=== PATIENT | female | born 1955 | race Caucasian/White ===

== ENCOUNTER 2017-08-18 07:21 | Inpatient (IN) | payer MEDICAID, OTHER ==
[~2017-08-18] VITALS: Ht 165.1 cm; Wt 65.0 kg
[2017-08-18 07:27] VITALS: Ht 165.1 cm; Wt 65.0 kg
[2017-08-18] MEDS ORDERED: ONDANSETRON 4 MG INJ IV STA (07:44)
[2017-08-18] MEDS ORDERED: SOD CHLORIDE 0.9% 1,000 ML IV STA (07:44)
[2017-08-18] MEDS ORDERED: MECLIZINE 12.5 MG TAB PO ONE (08:00)
[2017-08-18] MEDS ORDERED: LORAZEPAM 2 MG INJ IV ONE ×2 (08:00→10:00)
[2017-08-18 08:50] LABS: BASOPHILS % 0.3 % (0.0-2.0); EOSINOPHILS # 0.2 10^3/ul (0.0-0.5); EOSINOPHILS % 1.9 % (0.0-7.0); HEMOGLOBIN 15.8 g/dl (12.0-16.0); LYMPHOCYTES # 2.9 10^3/ul (0.8-2.9); LYMPHOCYTES % 33.1 % (15.0-51.0); MEAN CORPUSCULAR HEMOGLOBIN 29.3 pg (29.0-33.0); MEAN CORPUSCULAR HGB CONC 33.6 g/dl (32.0-37.0); MONOCYTE # 0.6 10^3/ul (0.3-0.9); MONOCYTES % 6.7 % (0.0-11.0); NEUTROPHILS % 57.8 % (39.0-77.0); PLATELET COUNT 219 10^3/UL (140-415); RED CELL DISTRIBUTION WIDTH 13.5 % (11.5-14.5); WHITE BLOOD COUNT 8.8 10^3/ul (4.8-10.8)
--- NOTE | 2017-08-18 08:54 | RADRPT ---
PROCEDURE: Chest Radiograph. CLINICAL INDICATION: Abdominal pain TECHNIQUE: Single frontal chest radiograph. COMPARISON: None available FINDINGS: Patient is status post sternotomy. Mechanical valve is in place.. There is diffuse increased densit y throughout the left hemithorax which is likely artifactual in nature. No infiltrate or effusion is seen. The bones are intact. IMPRESSION: 1. No evidence of acute cardiopulmonary disease. RPTAT: KK .Jean Garcia MD, MD Date Time Electronically viewed and signed by .Jean Garcia MD, MD on 08/18/2017 08:54 .B/
[2017-08-18 09:16] LABS: ALANINE AMINOTRANSFERASE 38 IU/L (13-69); ALBUMIN 4.4 g/dl (3.3-4.9); ALBUMIN/GLOBULIN RATIO 1.18; ALKALINE PHOSPHATASE 84 IU/L (42-121); ANION GAP 14 (8-16); ASPARTATE AMINO TRANSFERASE 31 IU/L (15-46); BILIRUBIN,INDIRECT 0.5 mg/dl (0-1.1); BILIRUBIN,TOTAL 0.5 mg/dl (0.2-1.3); BLOOD UREA NITROGEN 25 mg/dl (7-20); CALCIUM 9.4 mg/dl (8.4-10.2); CARBON DIOXIDE 27 mmol/L (21-31); CHLORIDE 106 mmol/L (97-110); CREATININE 0.78 mg/dl (0.44-1.00); GLUCOSE 124 mg/dl (70-220); SODIUM 143 mmol/L (135-144); TOTAL PROTEIN 8.1 g/dl (6.1-8.1)
[2017-08-18] MEDS ORDERED: DILTIAZEM 25 MG INJ ONE (09:25)
[2017-08-18 09:27] LABS: TROPONIN-I < 0.012 ng/ml (0.00-0.12)
[2017-08-18] MEDS ORDERED: DILTIAZEM 25 MG INJ IV ONE (09:30)
[2017-08-18] MEDS ORDERED: DIGO125T6 PO (09:38)
[2017-08-18] MEDS ORDERED: CARV12.598 PO (09:39)
[2017-08-18 09:40] LABS: ADD UMIC YES; UR ASCORBIC ACID NEGATIVE (NEGATIVE); UR BILIRUBIN (Dip) NEGATIVE (NEGATIVE); UR BLOOD (Dip) 1+ mg/dL (NEGATIVE); UR CLARITY SLIGHTLY CLOUDY (CLEAR); UR COLOR YELLOW (YELLOW); UR GLUCOSE (Dip) NEGATIVE (NEGATIVE); UR KETONES (Dip) NEGATIVE (NEGATIVE); UR LEUKOCYTE ESTERASE (Dip) TRACE Leu/ul (NEGATIVE); UR NITRITE (Dip) NEGATIVE (NEGATIVE); UR RBC 3 /HPF (0-5); UR SPECIFIC GRAVITY (Dip) 1.023 (1.003-1.030); UR TOTAL PROTEIN (Dip) NEGATIVE (NEGATIVE); UR UROBILINOGEN (Dip) NEGATIVE (NEGATIVE)
[2017-08-18] MEDS ORDERED: WARF2.5T PO (09:42)
[2017-08-18] MEDS ORDERED: WARF5TAB72 PO (09:55)
[2017-08-18] MEDS ORDERED: PRAV20TA2 PO (09:56)
[2017-08-18] MEDS ORDERED: MECL12.574 PO (09:57)
[2017-08-18 10:30] LABS: INR 2.86; PROTIME 30.4 Sec (12.2-14.2); PT RATIO 2.4
[2017-08-18 10:31] LABS: PARTIAL THROMBOPLASTIN TIME 46.8 Sec (25.0-35.0)
--- NOTE | 2017-08-18 11:13 | ERA ---
ER Documentation Chief Complaint Date/Time DATE: 08/18/17 TIME: 11:09 Chief Complaint Complains of vertigo x 3 days HPI 62-year-old woman complains of dizziness and vertigo 3 days, history of arrhythmia, although patient does not recall her exact diagnosis. She feels weak but denies palpitations, states she had a similar episode about a year ago. She has had some nausea no vomiting or diarrhea, no chest pain or shortness of breath, no headache or blurry vision, no dysuria. ROS All systems reviewed and are negative except as per history of present illness. Medications Home Meds Reported Medications Meclizine Hcl* (Antivert*) 12.5 Mg Tab, 12.5 MG PO Q8H Y for DIZZINESS, #30 TAB 08/18/17 Pravastatin Sodium (Pravastatin Sodium) 20 Mg Tablet, 20 MG PO HS, TAB 08/18/17 Warfarin Sodium* (Coumadin*) 5 Mg Tablet, 5 MG PO TUESDAY & TUESDAY, TAB 08/18/17 Warfarin Sodium* (Coumadin*) 2.5 Mg Tablet, 2.5 MG PO TUE,,TUE,SAT,SUN, TAB 08/18/17 Carvedilol* (Coreg*) 12.5 Mg Tablet, 12.5 MG PO BID, #60 TAB 08/18/17 Digoxin* (Lanoxin*) 0.125 Mg Tablet, 0.125 MG PO DAILY, TAB 08/18/17 Allergies Allergies: Coded Allergies: levofloxacin (Verified Allergy, Mild, Heart problems, rash, 08/18/17) PMhx/Soc Possible atrial fibrillation, history of mitral valve replacement, hypertension Hx Alcohol Use: No Hx Substance Use: No Hx Tobacco Use: No Smoking Status: Never smoker FmHx Family History: No diabetes Physical Exam Vitals Vital Signs Date Time Temp Pulse Resp B/P Pulse Ox O2 Delivery O2 Flow Rate FiO2 08/18/17 11:18 80 18 107/64 98 Nasal Cannula 2.0 08/18/17 09:45 75 18 117/62 99 Nasal Cannula 2.0 08/18/17 09:39 138 18 116/54 99 Nasal Cannula 2.0 08/18/17 08:34 104 21 122/77 98 Room Air 08/18/17 07:27 98.2 79 20 135/78 98 Physical Exam GENERAL: Well-developed, well-nourished, appears anxious, afebrile HEENT: Moist mucous membranes, pink conjunctiva, no cervical spine tenderness or step-off deformities, no goiter, no jaundice or icterus, extraocular movements intact without pain. No submandibular induration, and no pharyngeal erythema NEURO: Alert and oriented 3, cranial nerves II through XII intact bilaterally, pupils equal round reactive to light, no focal deficits or facial asymmetry, sensation intact distally Strength 5/5 in upper and lower extremities bilaterally CARDIAC: Tachycardic and regular, no murmurs rubs or gallops LUNGS: Clear bilaterally no wheezing crackles or stridor ABDOMEN: Soft nontender, no guarding, no rigidity, no rebound, no psoas sign no obturator sign. Normoactive bowel sounds SKIN: Warm and dry to touch, no abrasions, contusions, or hematomas, no lacerations, no ecchymosis, no target lesions, and without ulcers EXTREMITIES: No clubbing cyanosis or edema, calves are bilaterally symmetrical, no Homans sign, no popliteal cord sign. Distal pulses equal and bilateral PSYCH: Anxious Result Diagram: 08/18/17 0801 08/18/17 08 Results 24 hrs Laboratory Tests Test 08/18/17 08:01 White Blood Count 8.810^3/ul Red Blood Count 5.4010^6/ul Hemoglobin 15.8g/dl Hematocrit 47.0% Mean Corpuscular Volume 87.0fl Mean Corpuscular Hemoglobin 29.3pg Mean Corpuscular Hemoglobin Concent 33.6g/dl Red Cell Distribution Width 13.5% Platelet Count 65678^3/UL Mean Platelet Volume 11.0fl Neutrophils % 57.8% Lymphocytes % 33.1% Monocytes % 6.7% Eosinophils % 1.9% Basophils % 0.3% Nucleated Red Blood Cells % 0.0/100WBC Neutrophils # 5.010^3/ul Lymphocytes # 2.910^3/ul Monocytes # 0.610^3/ul Eosinophils # 0.210^3/ul Basophils # 0.010^3/ul Nucleated Red Blood Cells # 0.010^3/ul Prothrombin Time 30.4Sec Prothrombin Time Ratio 2.4 INR International Normalized Ratio 2.86 Activated Partial Thromboplast Time 46.8Sec Urine Color YELLOW Urine Clarity SLIGHTLY CLOUDY Urine pH 6.0 Urine Specific [place] 1.023 Urine Ketones NEGATIVEmg/dL Urine Nitrite NEGATIVEmg/dL Urine Bilirubin NEGATIVEmg/dL Urine Urobilinogen NEGATIVEmg/dL Urine Leukocyte Esterase TRACELeu/ul Urine Microscopic RBC 3/HPF Urine Microscopic WBC 1/HPF Urine Hemoglobin 1+mg/dL Urine Glucose NEGATIVEmg/dL Urine Total Protein NEGATIVEmg/dl Sodium Level 143mmol/L Potassium Level 4.0mmol/L Chloride Level 106mmol/L Carbon Dioxide Level 27mmol/L Anion Gap 14 Blood Urea Nitrogen 25mg/dl Creatinine 0.78mg/dl Glucose Level 124mg/dl Calcium Level 9.4mg/dl Total Bilirubin 0.5mg/dl Direct Bilirubin 0.00mg/dl Indirect Bilirubin 0.5mg/dl Aspartate Amino Transf (AST/SGOT) 31IU/L Alanine Aminotransferase (ALT/SGPT) 38IU/L Alkaline Phosphatase 84IU/L Troponin I < 0.012ng/ml B-Type Natriuretic Peptide 1710PG/ML Total Protein 8.1g/dl Albumin 4.4g/dl Globulin 3.70g/dl Albumin/Globulin Ratio 1.18 Lipase 85U/L Current Medications Medications (Trade) Dose Ordered Sig/Stefani Route PRN Reason Start Time Stop Time Status Last Admin Dose Admin Sodium Chloride (NS) 1,000 ml @ 1,000 mls/hr Q1H STAT IV 08/18/17 07:44 08/18/17 08:43 DC 08/18/17 08:28 Ondansetron HCl (Zofran Inj) 4 mg ONCE STAT IV 08/18/17 07:44 08/18/17 08:22 DC Lorazepam (Ativan) 0.5 mg ONCE ONCE IV 08/18/17 08:00 08/18/17 08:22 DC Meclizine HCl (Antivert) 25 mg ONCE ONCE PO 08/18/17 08:00 08/18/17 08:22 DC Diltiazem HCl (Cardizem Iv) 20 mg ONCE ONCE IV 08/18/17 09:30 08/18/17 09:32 DC 08/18/17 09:39 Diltiazem HCl (Cardizem Iv) 25 mg STK-MED ONCE .ROUTE 08/18/17 09:25 08/18/17 09:26 DC Lorazepam (Ativan) 1 mg ONCE ONCE IV 08/18/17 10:00 9/21/17 10:01 DC Carvedilol (Coreg) 12.5 mg BID PO 08/18/17 21:00 Digoxin (Digoxin) 0.125 mg DAILY@13 PO 08/19/17 13:00 Meclizine HCl (Antivert) 12.5 mg Q8H PRN PO DIZZINESS 08/18/17 13:00 Atorvastatin Calcium (Lipitor) 10 mg DAILY@21 PO 08/18/17 21:00 Metoprolol Tartrate (Lopressor) 5 mg Q4 PRN IV HR >100 08/18/17 13:00 Warfarin Sodium (Coumadin) 2.5 mg DAILY@17 PO 08/18/17 17:00 Loratadine (Claritin) 10 mg DAILY PO 08/18/17 13:00 Fluticasone Propionate (Flonase 0.05% Nasal) 1 spray DAILY NASAL 08/18/17 13:00 IV Flush (NS 3 ml) 3 ml PER PROTOCOL IV 08/18/17 13:00 Ondansetron HCl (Zofran Inj) 4 mg Q6H PRN IV NAUSEA AND/OR VOMITING 08/18/17 13:00 Acetaminophen (Tylenol Tab) 650 mg Q6H PRN PO PAIN LEVEL 1-3 OR FEVER 08/18/17 13:00 Docusate Sodium (Colace) 100 mg Q12H PRN PO CONSTIPATION 08/18/17 13:00 Magnesium Hydroxide (Milk Of Mag) 30 ml DAILY PRN PO CONSTIPATION 08/18/17 13:00 Procedures/MDM IV line was established patient was placed on cardiac exercise physiologist rhythm strip revealed a irregular narrow complex tachycardia at 120 bpm. Patient was afebrile. EKG performed, read by me revealed an atrial flutter with variable block and rapid ventricular rate at 118 bpm, normal axis, intraventricular conduction delay at 114 ms, no concerning ST elevations or depressions noted. I administered 1 L normal saline intravenously, and patient ultimately required diltiazem 20 mg IV 1 for symptomatic atrial flutter with RVR I also administered lorazepam 0.5 mg IV 1 for anxiety. EKG #2 post diltiazem therapy revealed an atrial flutter rate controlled at 53 beats per minute, normal axis, left ventricular conduction delay with a QRS duration of 114 ms, no concerning ST elevations or depressions noted. One view chest x-ray performed, read by me reveals synthetic mitral valve and sternotomy wires, no acute infiltrates, no pneumothorax. Critical Care: Time: 56 minutes, this was time separate from other billable procedures. Treatments/Evaluations: Close monitoring and treatment of unstable vital signs, cardiorespiratory, and neurologic status, while maintaining tight balance of fluid, respiratory, and cardiac interventions. CBC was unremarkable, electrolytes revealed dehydration with a BUN/creatinine of 25/0.8, liver function tests normal, troponin negative. Urine analysis is equivocal, cultures are pending and I will defer antibiotic management if indicated to admitting team. Patient remains symptomatic and will be admitted to telemetry setting for continued medical management and cardiology consultation. Her tachycardia has improved. Departure Diagnosis: Primary Impression: Atrial fibrillation with RVR Additional Impressions: Dehydration Dizziness Condition: Fair EDEN FORD MD Aug 18, 2017 11:13
--- NOTE | 2017-08-18 12:48 | HP ---
Date/Time of Note Date/Time of Note DATE: 08/18/17 TIME: 12:48 Assessment/Plan VTE Prophylaxis VTE Prophylaxis Intervention: other (fully anticoagulated on Coumadin) Lines/Catheters IV Catheter Type (from Nrsg): Peripheral IV Assessment/Plan Assessment/Plan 1. Aflutter with RVR - Patient found to have rate of 160 and aflutter on EKG. Given dose of Cardizem in ED which improved condition and now rate controlled - Patient has remained asymptomatic - Will check ECHO for any abnormalities - Patient did not take her medication this am which may have been reason behind RVR - Has not followed up with Cardiology. If no acute issues, will work on getting her set up as an outpatient for proper follow up rather than consult as inpatient - On Coumadin and will dose daily - will check TSH 2. BPPV - Patient has been experiencing vertigo for the past 2 weeks - Given Antivert with some relief - Most likely secondary to sinus congestion and will treat and monitor - Will advise patient about Melva maneuver to help with BPPV 3. Acute rhinitis - Patient has fluid in left TM and nasal bogginess - Will treat with Claritin and Flonase 4. MV replacement - stable 5. HLP - on statin 6. Diet - Heart healthy 7. Code status - Full code 8. DVT - SCD - Fully anticoagulated on Coumadin 9. Disposition - Will admit to telemetry >40 minutes was spent with patient at time of admission and all answers and concerns were addressed. HPI/ROS Admit Date/Time Admit Date/Time 08/18/17 Hx of Present Illness 62 yo F with PMH arrhythmia and mitral valve repair presented to ED c/o vertigo for the past 2 weeks. She states she was seen at [facility] this past Tuesday for evaluation. CT scan of head was performed and per patient was negative for any abnormalities and was discharged on Antivert. Patient states symptoms continued and shes been afraid there was something really wrong with her. She also admits to ringing in her ears but denies any new change in hearing. She had surgery on her left ear when she was 10 years old and has always had diminished hearing. She was found to have aflutter with RVR but patient states she is aware that she has an arrhythmia although does not experiencing any palpitations. She did not take her medication this am as well. She is currently on Coumadin. She does admit to having sinus issues and ran out of Flonase which usually helps. Denies any chest pain, palpitations, shortness of breath, or abdominal issues. ROS All 13 systems were reviewed and positive per HPI. All others found to be negative Constitutional: disoriented, fatigue, nausea, No chills, No diaphoresis Eyes: no complaints ENT: congestion, other (ringing in ears), pain Respiratory: No cough, No shortness of breath, No sputum, No wheezing Cardiovascular: No chest pain, No edema, No lightheadedness, No palpitations Gastrointestinal: nausea, no complaints, No constipation, No diarrhea, No vomiting Genitourinary: no complaints Musculoskeletal: no complaints Skin: no complaints Neurologic: dizziness Endocrine: no complaints Lymphatic: no complaints Psychological: nl mood/affect, no complaints Immunologic: no complaints PMH/Family/Social Past Medical History Medical History: high cholesterol, hypertension, other (mitral valve replacement, atrial arrhythmia) Past Surgical History Past Surgical Hx: other (mitral valve replacement) Family History Significant Family History: no pertinent family hx Social History Alcohol Use: none Smoking Status: Never smoker Drug Use: none Exam/Review of Systems Vital Signs Vitals Vital Signs Date Time Temp Pulse Resp B/P Pulse Ox O2 Delivery O2 Flow Rate FiO2 08/18/17 11:18 80 18 107/64 98 Nasal Cannula 2.0 08/18/17 07:27 98.2 Exam Constitutional: alert, distress (secondary to fear), oriented, well developed Psych: anxiety Head: atraumatic, normocephalic, other (horizontal nystagmus ) Eyes: EOMI, PERRL ENMT: mucosa pink and moist, tympanic membranes (scarring in right TM, fluid in left TM) Neck: non-tender, supple Respiratory: clear to auscultation, normal air movement, No crackles/rales, No diminished breath sounds, No wheezing Cardiovascular: irregular rhythm, murmurs/extra sounds, other (regular rate), No systolic murmur Gastrointestinal: nl liver, spleen, non-tender, soft, No distended, No rebound or guarding Genitourinary - Female: No CVA tenderness Musculoskeletal: nl extremities to inspection Extremities: normal pulses Neurological: CAR PORTER II-XII intact, nl mental status, nl speech, nl strength Skin: nl turgor Lymph: nl lymph nodes Labs Result Diagram: 08/18/17 0801 08/18/17 0801 BOBBI VICTOR MD Aug 18, 2017 12:48
[2017-08-18] MEDS ORDERED: DOCUSATE SODIUM 100 MG CAP PO PRN (13:00)
[2017-08-18] MEDS: LORATADINE 10 MG TAB PO SCH (13:00)
[2017-08-18] MEDS ORDERED: MAGNESIUM HYDROXIDE 30ML CUP PO PRN (13:00)
[2017-08-18] MEDS ORDERED: NACL 0.9% 3 ML SYG IV SCH (13:00)
[2017-08-18] MEDS: FLUTICASONE 0.05% 16 GM NAS SPRAY NASAL SCH (13:00)
[2017-08-18] MEDS ORDERED: ACETAMINOPHEN 325 MG TAB PO PRN (13:00)
[2017-08-18] MEDS ORDERED: ONDANSETRON 4 MG INJ IV PRN (13:00)
[2017-08-18] MEDS ORDERED: MECLIZINE 12.5 MG TAB PO PRN (13:00)
[2017-08-18] MEDS ORDERED: METOPROLOL 5 MG INJ IV PRN (13:00)
[2017-08-18 16:17] VITALS: TEMP 97.8
[2017-08-18 16:45] VITALS: BP 141/67; PULSE 67; RESP 18
[2017-08-18] MEDS: WARFARIN 2.5 MG TAB PO SCH (18:50)
[2017-08-18 19:56] VITALS: BP 116/53; PULSE 74; RESP 15
[2017-08-18 20:01] VITALS: PULSE 72
[2017-08-19] VITALS (11 sets, daily range): BP systolic 113–128; BP diastolic 53–62; PULSE 63–69; RESP 15–19
[2017-08-19] MEDS: ATORVASTATIN 10 MG TAB PO SCH ×3 (00:10→20:54)
[2017-08-19 07:21] LABS: BASOPHILS % 0.5 % (0.0-2.0); EOSINOPHILS # 0.1 10^3/ul (0.0-0.5); HEMATOCRIT 41.1 % (37.0-47.0); HEMOGLOBIN 13.2 g/dl (12.0-16.0); LYMPHOCYTES % 31.9 % (15.0-51.0); MEAN CORPUSCULAR HEMOGLOBIN 28.7 pg (29.0-33.0); MEAN CORPUSCULAR HGB CONC 32.1 g/dl (32.0-37.0); MEAN CORPUSCULAR VOLUME 89.3 fl (82.0-101.0); MEAN PLATELET VOLUME 10.4 fl (7.4-10.4); MONOCYTE # 0.4 10^3/ul (0.3-0.9); NEUTROPHIL # 3.6 10^3/ul (1.6-7.5); NEUTROPHILS % 58.3 % (39.0-77.0); PLATELET COUNT 162 10^3/UL (140-415); WHITE BLOOD COUNT 6.1 10^3/ul (4.8-10.8)
[2017-08-19 07:49] LABS: CHOL/HDL RATIO 4.7 RATIO; MAGNESIUM 1.9 mg/dl (1.7-2.5)
[2017-08-19 07:53] LABS: INR 3.26; PROTIME 33.7 Sec (12.2-14.2); PT RATIO 2.6
[2017-08-19 07:54] LABS: PARTIAL THROMBOPLASTIN TIME 47.1 Sec (25.0-35.0)
[2017-08-19 08:17] LABS: THYROID STIMULATING HORMONE 1.18 MIU/L (0.465-4.680)
[2017-08-19] MEDS: LORATADINE 10 MG TAB PO SCH (08:58)
[2017-08-19 09:35] LABS: ALBUMIN 3.5 g/dl (3.3-4.9); CALCIUM 8.7 mg/dl (8.4-10.2); CREATININE 0.72 mg/dl (0.44-1.00); PHOSPHORUS 2.7 mg/dl (2.5-4.9); POTASSIUM 4.1 mmol/L (3.5-5.1)
[2017-08-19] MEDS: FLUTICASONE 0.05% 16 GM NAS SPRAY NASAL SCH (12:30)
[2017-08-19] MEDS: DIGOXIN 0.125 MG TAB PO SCH (12:38)
--- NOTE | 2017-08-19 14:37 | PN ---
Date/Time of Note Date/Time of Note DATE: 08/19/17 TIME: 14:30 Assessment/Plan VTE Prophylaxis VTE Prophylaxis Intervention: SCD's Lines/Catheters IV C[facility]ter Type (from [facility]): Saline Lock Urinary Cath still in place: No Assessment/Plan Assessment/Plan 1. Aflutter with RVR- stable - Patient rate has been well controlled since admission. Will continue on current medications. - Patient has remained asymptomatic - ECHO performed and awaiting results. If no acute issues will have patient follow up as outpatient - Patient did not take her medication this am which may have been reason behind RVR - On Coumadin and will dose daily, hold today dose and repeat INR in am - TSH within normal limits 2. BPPV - Patient has been experiencing vertigo for the past 2 weeks - Most likely secondary to sinus congestion and will treat and monitor - Will advise patient about Melva maneuver to help with BPPV - Antivert 3. Acute rhinitis - Patient has fluid in left TM and nasal bogginess - Will treat with Claritin and Flonase 4. MV replacement - stable 5. HLP - on statin 6. Disposition - if patient stable after working with PT and no balance issues due to vertigo, will d/c home Subjective 24 Hr Interval Summary Free Text/Dictation Patient states has a discomfort in occipital area when she feels an episode of vertigo coming on. Denies any chest pain, shortness of breath, palpitations, nausea, vomiting, or abdominal issues. Exam/Review of Systems Vital Signs Vitals Vital Signs Date Time Temp Pulse Resp B/P Pulse Ox O2 Delivery O2 Flow Rate FiO2 08/19/17 12:00 64 08/19/17 11:16 97.5 19 125/60 96 08/18/17 19:56 Room Air 08/18/17 16:17 2.0 Intake and Output 08/18/17 08/18/17 08/19/17 15:00 23:00 07:00 Intake Total 300 ml Balance 300 ml Exam General: NAD, oriented, well developed HEENT: NC/AT. horizontal nystagmus, EOMI, PERRL, scarring in right TM, fluid in left TM Neck: non-tender, supple Respiratory: clear to auscultation, normal air movement, No crackles/rales, No diminished breath sounds, No wheezing Cardiovascular: irregular rhythm, regular rate. No systolic murmur Gastrointestinal: nl liver, spleen, non-tender, soft, No distended, No rebound or guarding Musculoskeletal: nl extremities to inspection Extremities: normal pulses Results Result Diagram: 08/19/17 0634 08/19/17 0634 Results 24 hrs Laboratory Tests Test 08/19/17 06:34 White Blood Count 6.1 # Red Blood Count 4.60 Hemoglobin 13.2 Hematocrit 41.1 Mean Corpuscular Volume 89.3 Mean Corpuscular Hemoglobin 28.7 L Mean Corpuscular Hemoglobin Concent 32.1 Red Cell Distribution Width 14.0 Platelet Count 162 # Mean Platelet Volume 10.4 Neutrophils % 58.3 Lymphocytes % 31.9 Monocytes % 7.0 Eosinophils % 2.0 Basophils % 0.5 Nucleated Red Blood Cells % 0.0 Neutrophils # 3.6 Lymphocytes # 2.0 Monocytes # 0.4 Eosinophils # 0.1 Basophils # 0.0 Nucleated Red Blood Cells # 0.0 Prothrombin Time 33.7 H Prothrombin Time Ratio 2.6 INR International Normalized Ratio 3.26 Activated Partial Thromboplast Time 47.1 H Sodium Level 140 Potassium Level 4.1 Chloride Level 109 Carbon Dioxide Level 27 Anion Gap 8 Blood Urea Nitrogen 22 H Creatinine 0.72 Glucose Level 103 Hemoglobin A1c 5.6 Calcium Level 8.7 Phosphorus Level 2.7 Magnesium Level 1.9 Albumin 3.5 Triglycerides Level 200 H Cholesterol Level 176 LDL Cholesterol, Calculated 99 HDL Cholesterol 37 Cholesterol/HDL Ratio 4.7 Thyroid Stimulating Hormone (TSH) 1.180 Medications Medications Current Medications Carvedilol (Coreg) 12.5 mg BID PO Last administered on 08/19/17 08:59; Admin Dose 12.5 MG; Start 08/18/17 at 21:00 Digoxin (Digoxin) 0.125 mg DAILY@13 PO Last administered on 08/19/17 12:38; Admin Dose 0.125 MG; Start 08/19/17 at 13:00 Meclizine HCl (Antivert) 12.5 mg Q8H PRN PO DIZZINESS; Start 08/18/17 at 13:00 Atorvastatin Calcium (Lipitor) 10 mg DAILY@21 PO ; Start 08/18/17 at 21:00 Metoprolol Tartrate (Lopressor) 5 mg Q4 PRN IV HR >100; Start 08/18/17 at 13:00 Warfarin Sodium (Coumadin) 2.5 mg DAILY@17 PO Last administered on 08/18/17 18 :50; Admin Dose 2.5 MG; Start 08/18/17 at 17:00; Status Future hold Loratadine (Claritin) 10 mg DAILY PO Last administered on 08/19/17 08:58; Admin Dose 10 MG; Start 08/18/17 at 13:00 Fluticasone Propionate (Flonase 0.05% Nasal) 1 spray DAILY NASAL Last administered on 08/19/17 12:30; Admin Dose 1 SPRAY; Start 08/18/17 at 13:00 Ondansetron HCl (Zofran Inj) 4 mg Q6H PRN IV NAUSEA AND/OR VOMITING; Start at 13:00 Acetaminophen (Tylenol Tab) 650 mg Q6H PRN PO PAIN LEVEL 1-3 OR FEVER; Start at 13:00 Docusate Sodium (Colace) 100 mg Q12H PRN PO CONSTIPATION; Start 08/18/17 at 13: 00 Magnesium Hydroxide (Milk Of Mag) 30 ml DAILY PRN PO CONSTIPATION; Start at 13:00 BOBBI VICTOR MD Aug 19, 2017 14:37
[2017-08-19] MEDS ORDERED: LORA10TA3 PO (14:38)
[2017-08-19] MEDS ORDERED: FLUT16SP17 NASAL (14:38)
[2017-08-19] MEDS ORDERED: MECL12.574 PO (14:38)
--- NOTE | 2017-08-19 14:43 | PDOCDIS ---
Discharge Instructions DIAGNOSIS Discharge Diagnosis 1. Aflutter with RVR 2. BPPV 3. Acute rhinitis CONDITION Patient Condition: Good HOME CARE INSTRUCTIONS: Diet Instructions: Low Fat /CholesterolSpecial Diet: LOW FAT LOW CHOLES ACTIVITY: Activity Restrictions: No Restrictions FOLLOW UP/APPOINTMENTS Follow-up Plan 1. [place] Antivert demetri sea necesario para los mareos. El vrtigo taya unas semanas para resolver completamente 2. Nicole un seguimiento con el mdico de atencin primaria para el manejo de hedy medicamentos 3. INR es ptimo hoy, taya dosis regular de Coumadin esta noche 4. si experimenta sntomas que empeoran, regrese a la ashley de emergencias REFERRALS Other Referrals Efren Gordon MD Specialty: Cardiology Office Address [address] [place] [address] Office SCHOOL/WORK RELEASE May return to School/Work on: Aug 22, 2017 May return to School/Work with: no te esfuerces demasiado BOBBI VICTOR MD Aug 19, 2017 14:43
--- NOTE | 2017-08-19 18:31 | RADRPT ---
Echocardiogram Report Patient Name: JOANIE VIDAL Gender: Female Date: 1955 Study Date: 19-Aug-2017 [id number] Ref. Physician: BOBBI VICTOR Quality: Good Procedures: Transthoracic echocardiogram with complete 2D, M-Mode, and doppler examination. Indications: aflutter with RVR. 2D/M Mode Doppler Measurement Value Normal Ranges Measurement Value Normal Ranges LVIDd 2D 3.6 3.5 - 5.6 cm AV Peak Milo 1.6 m/sec LVIDs 2D 2.3 2.1 - 4.1 cm AV Peak PG 10.1 mmHg LVPWd 2D 0.9 0.6 - 1.1 cm AI Peak PG 67.0 mmHg IVSd 2D 0.9 0.6 - 1.1 cm AI Peak Milo 4.1 m/sec AoR Diam 2D 2.5 2.0 - 3.7 cm AI PHT 463.1 msec EDV 2D 54.1 cm3 LVOT Peak Milo 1.1 m/sec ESV 2D 12.2 cm3 LVOT Peak PG 5.1 mmHg LA Dimen 2D 4.0 2.3 - 4.0 cm MV E Peak Milo 1.8 m/sec MV A Peak Milo 0.6 m/sec MV E/A 3.2 MV PHT 73.8 msec MV Peak Milo 1.9 m/sec MV Peak PG 15.2 mmHg MV Mean Milo 0.8 m/sec MV Mean PG 3.9 mmHg MV Decel Time 246 msec MV Decel Story 7 MV E/A 3.2 MV PHT 73.8 msec MV VTI 37.6 cm MVA PHT 3.0 cm2 TR Peak Milo 2.4 m/sec TR Peak PG 23.5 mmHg RVSP 27.0 mmHg Findings Left Ventricle: Normal left ventricular systolic function. Normal left ventricular cavity size. Normal left ventricular wall thickness. Ejection fraction is visually estimated at 6065 %. Tissue Doppler/Mitral Doppler indices are indeterminate in this study due to the presence of mitral valve replacement. Right Ventricle: Normal right ventricular size. Normal right ventricular systolic function. Left Atrium: There is mild enlargement of left atrium. Right Atrium: The right atrium is normal in size. Mitral Valve: Trace mitral regurgitation. Mitral Valve Mechanical Prosthesis. Mitral valve Max Velocity 1.95 m/sec. MaxPG 15.20 mmHg. MeanPG 3.90 mmHg. Aortic Valve: No hemodynamically significant aortic stenosis by doppler. Aortic cusps appear mildly calcified. Mild to moderate aortic valve regurgitation. Tricuspid Valve: Normal appearance of the tricuspid valve. Estimated peak PA systolic pressure 27 mmHg. There is mild tricuspid regurgitation. Pulmonic Valve: Pulmonic valve not well visualized. Pericardium: Normal pericardium with no significant pericardial effusion. Aorta: Normal aortic root. IVC: Normal size and normal respiratory collapse consistent with normal right atrial pressure. Conclusions 1.Normal left ventricular systolic function. Normal left ventricular cavity size. Normal left ventricular wall thickness. Ejection fraction is visually estimated at 60-65 %. Tissue Doppler/Mitral Doppler indices are indeterminate in this study due to the presence of mitral valve replacement. 2.There is mild enlargement of left atrium. 3.Trace mitral regurgitation. Mitral Valve Mechanical Prosthesis. Mitral valve Max Velocity 1.95 m/sec. MaxPG 15.20 mmHg. MeanPG 3.90 mmHg. 4.No hemodynamically significant aortic stenosis by doppler. Aortic cusps appear mildly calcified. Mild to moderate aortic valve regurgitation. 5.Normal appearance of the tricuspid valve. Estimated peak PA systolic pressure 27 mmHg. There is mild tricuspid regurgitation. Electronically Signed By: Efren Gordon 19-Aug-2017 18:29:57 -0700 Patient Name: JOANIE VIDAL Study Date: 19-Aug-2017 [id number]
[2017-08-20] VITALS (12 sets, daily range): BP systolic 86–127; BP diastolic 56–62; PULSE 50–183; RESP 15–18
[2017-08-20 07:24] LABS: INR 2.92; PROTIME 30.9 Sec (12.2-14.2); PT RATIO 2.4
[2017-08-20 07:25] LABS: PARTIAL THROMBOPLASTIN TIME 47.5 Sec (25.0-35.0)
[2017-08-20] MEDS: FLUTICASONE 0.05% 16 GM NAS SPRAY NASAL SCH ×2 (09:34→21:34)
[2017-08-20] MEDS: LORATADINE 10 MG TAB PO SCH (09:36)
[2017-08-20 11:21] LABS: CALCIUM 9.2 mg/dl (8.4-10.2); CREATININE 0.79 mg/dl (0.44-1.00); MAGNESIUM 1.9 mg/dl (1.7-2.5); PHOSPHORUS 2.2 mg/dl (2.5-4.9); POTASSIUM 3.7 mmol/L (3.5-5.1)
[2017-08-20] MEDS ORDERED: SOD CHLORIDE 0.9% 1,000 ML IV ONE (12:30)
[2017-08-20] MEDS: DIGOXIN 0.125 MG TAB PO SCH (12:46)
[2017-08-20] MEDS ORDERED: METOPROLOL 5 MG INJ IV PRN (13:00)
--- NOTE | 2017-08-20 15:23 | PN ---
Date/Time of Note Date/Time of Note DATE: 08/20/17 TIME: 15:13 Assessment/Plan VTE Prophylaxis VTE Prophylaxis Intervention: other Lines/Catheters IV Catheter Type (from [facility]): Saline Lock Urinary Cath still in place: No Assessment/Plan Assessment/Plan 1. Aflutter with RVR - Patients rate has been fluctuating all day ranging from 70s to 180s - Cardiology consult placed for assistance with management and patient does not follow with [facility] as outpatient - There was an issue with receiving her medication last night as well which may have caused the tachycardia events tolday - ECHO shows Nl LV systolic function. Nl LV wall thickness, EF 60-65% Mild enlarged LA, trace MR, MV mechanical prostehsis. - On Coumadin and will dose daily, - TSH within normal limits 2. BPPV - Patient has been experiencing vertigo for the past 2 weeks - Appears to be associated with tachycardia episodes as well - Will advise patient about Melva maneuver to help with BPPV - Antivert TID 3. Acute rhinitis - Patient has fluid in left TM and nasal bogginess - Will treat with Claritin and Flonase BID 4. MV replacement - stable 5. HLP - on statin Subjective 24 Hr Interval Summary Free Text/Dictation patient upset this am because was not given Coreg last night after told her HR was too low. Per nursing, they said she was refusing her medications. This am she was in aflutter with RVR, rate of 180s and given Coreg with rate improving to 120s. Later in the afternoon, received a call from nurse that her SBP was in 80s and HR 130s. Exam/Review of Systems Vital Signs Vitals Vital Signs Date Time Temp Pulse Resp B/P Pulse Ox O2 Delivery O2 Flow Rate FiO2 08/20/17 14:33 70 08/20/17 11:44 97.2 18 86/56 97 08/18/17 19:56 Room Air 08/18/17 16:17 2.0 Intake and Output 08/19/17 08/19/17 08/20/17 15:00 23:00 07:00 Intake Total 600 ml 300 ml Balance 600 ml 300 ml Exam General: NAD, oriented, well developed HEENT: NC/AT. horizontal nystagmus, EOMI, PERRL Neck: non-tender, supple Respiratory: clear to auscultation, normal air movement, No crackles/rales, No diminished breath sounds, No wheezing Cardiovascular: irregular rhythm, tachy. No systolic murmur Gastrointestinal: nl liver, spleen, non-tender, soft, No distended, No rebound or guarding Musculoskeletal: nl extremities to inspection Extremities: normal pulses Results Result Diagram: 08/19/17 0634 08/20/17 1016 Results 24 hrs Laboratory Tests Test 08/20/17 05:56 08/20/17 10:16 Prothrombin Time 30.9 H Prothrombin Time Ratio 2.4 INR International Normalized Ratio 2.92 Activated Partial Thromboplast Time 47.5 H Sodium Level 141 Potassium Level 3.7 Chloride Level 107 Carbon Dioxide Level 27 Anion Gap 11 Blood Urea Nitrogen 17 Creatinine 0.79 Glucose Level 160 Calcium Level 9.2 Phosphorus Level 2.2 L Magnesium Level 1.9 Albumin 4.0 Medications Medications Current Medications Carvedilol (Coreg) 12.5 mg BID PO Last administered on 08/20/17 09:36; Admin Dose 12.5 MG; Start 08/18/17 at 21:00 Digoxin (Digoxin) 0.125 mg DAILY@13 PO Last administered on 08/20/17 12:46; Admin Dose 0.125 MG; Start 08/19/17 at 13:00 Meclizine HCl (Antivert) 12.5 mg Q8H PRN PO DIZZINESS; Start 08/18/17 at 13:00 Atorvastatin Calcium (Lipitor) 10 mg DAILY@21 PO ; Start 08/18/17 at 21:00 Warfarin Sodium (Coumadin) 2.5 mg DAILY@17 PO Last administered on 08/18/17 18 :50; Admin Dose 2.5 MG; Start 08/18/17 at 17:00; Status Future hold Loratadine (Claritin) 10 mg DAILY PO Last administered on 08/20/17 09:36; Admin Dose 10 MG; Start 08/18/17 at 13:00 Fluticasone Propionate (Flonase 0.05% Nasal) 1 spray DAILY NASAL Last administered on 08/20/17 09:34; Admin Dose 1 SPRAY; Start 08/18/17 at 13:00 Ondansetron HCl (Zofran Inj) 4 mg Q6H PRN IV NAUSEA AND/OR VOMITING; Start at 13:00 Acetaminophen (Tylenol Tab) 650 mg Q6H PRN PO PAIN LEVEL 1-3 OR FEVER; Start at 13:00 Docusate Sodium (Colace) 100 mg Q12H PRN PO CONSTIPATION; Start 08/18/17 at 13: 00 Magnesium Hydroxide (Milk Of Mag) 30 ml DAILY PRN PO CONSTIPATION; Start at 13:00 Metoprolol Tartrate (Lopressor) 5 mg Q10MIN PRN IV HR >100; Start 08/20/17 at 13:00 BOBBI VICTOR MD Aug 20, 2017 15:23
[2017-08-20] MEDS: WARFARIN 2.5 MG TAB PO SCH (17:37)
--- NOTE | 2017-08-20 20:40 | CONS ---
Date/Time of Note Date/Time of Note DATE: 08/20/17 TIME: 19:14 Consultation Date/Type/Reason Admit Date/Time 08/18/17 Hx of Present Illness 8. DVT - SCD - Fully anticoagulated on Coumadin 9. Disposition - Will admit to telemetry >40 minutes was spent with patient at time of admission and all answers and concerns were addressed. HPI/ROS Admit Date/Time Admit Date/Time 08/18/17 Hx of Present Illness 62 yo F with PMH arrhythmia and mitral valve repair presented to ED c/o vertigo for the past 2 weeks. She states she was seen at [facility] this past Tuesday for evaluation. CT scan of head was performed and per patient was negative for any abnormalities and was discharged on Antivert. Patient states symptoms continued and shes been afraid there was something really wrong with her. She also admits to ringing in her ears but denies any new change in hearing. She had surgery on her left ear when she was 10 years old and has always had diminished hearing. She was found to have aflutter with RVR but patient states she is aware that she has an arrhythmia although does not experiencing any palpitations. She did not take her medication this am as well. She is currently on Coumadin. She does admit to having sinus issues and ran out of Flonase which usually helps. Denies any chest pain, palpitations, shortness of breath, or abdominal issues. ROS All 13 systems were reviewed and positive per HPI. All others found to be negative Constitutional: disoriented, fatigue, nausea, No chills, No diaphoresis Eyes: no complaints ENT: congestion, other (ringing in ears), pain Respiratory: No cough, No shortness of breath, No sputum, No wheezing Cardiovascular: No chest pain, No edema, No lightheadedness, No palpitations Gastrointestinal: nausea, no complaints, No constipation, No diarrhea, No vomiting Genitourinary: no complaints Musculoskeletal: no complaints Skin: no complaints Neurologic: dizziness Endocrine: no complaints Lymphatic: no complaints Psychological: nl mood/affect, no complaints Immunologic: no complaints PMH/Family/Social Past Medical History Medical History: high cholesterol, hypertension, other (mitral valve replacement, atrial arrhythmia) Past Surgical History Past Surgical Hx: other (mitral valve replacement) Family History Significant Family History: no pertinent family hx Social History Alcohol Use: none Smoking Status: Never smoker Drug Use: none Exam/Review of Systems Vital Signs Vitals Vital Signs Date Time Temp Pulse Resp B/P Pulse Ox O2 Delivery O2 Flow Rate FiO2 08/20/17 11:18 80 18 107/64 98 Nasal Cannula 2.0 08/20/17 07:27 98.2 Exam Constitutional: alert, distress (secondary to fear), oriented, well developed Psych: anxiety Head: atraumatic, normocephalic, other (horizontal nystagmus ) Eyes: EOMI, PERRL ENT: mucosa pink and moist, tympanic membranes (scarring in right TM, fluid in left TM) Neck: non-tender, supple Respiratory: clear to auscultation, normal air movement, No crackles/rales, No diminished breath sounds, No wheezing Cardiovascular: irregular rhythm, murmurs/extra sounds, other (regular rate), No systolic murmur Gastrointestinal: nl liver, spleen, non-tender, soft, No distended, No rebound or guarding Genitourinary - Female: No CVA tenderness Musculoskeletal: nl extremities to inspection Extremities: normal pulses Neurological: NURSE CLINICIAN II-XII intact, nl mental status, nl speech, nl strength Skin: nl turgor L Admit Date/Time 08/18/17 Chief Complaint History of Present Illness 62 year old white female was admitted with new onset dizziness and vertigo for 2 weeks prior to admission. The patient has history of mitral valve disease (either stenosis or regurgitation, language barrier and patient's lay status prevents further knowledge of the original valvular abnormality). Patient had mitral valve replacement with a mechanical prosthesis at [facility] in 2007. She has had no post-op complications and she takes regularly warfarin. Patient presented to another hospital a week ago for evaluation of her symptoms. CT scan of head was apparently normal and she was discharged with meclizine. The symptoms continued and she presented to the ED at out of concern. She complained of ringing in her ears without additional hearing loss. She had surgery on her left ear when she was 10 years old and has always had diminished hearing. In the ED the patient was found to have atrial flutter or fibrillation with RVR. Apparently, the patient new about tachyarrhythmias before but never experienced rapid palpitations. She is currently on warfarin. Patient suffers of seasonal allergies and ran out of Flonase which usually helps. She denies chest pain, palpitations, shortness of breath, or other symptoms.. ROS Constitutional: disoriented, fatigue, nausea, No chills, No diaphoresis. Eyes: no complaints ENT: congestion, other (ringing in ears), pain Respiratory: No cough, No shortness of breath, No sputum, No wheezing Cardiovascular: No chest pain, No edema, No lightheadedness, No palpitations Gastrointestinal: nausea, no complaints, No constipation, No diarrhea, No vomiting Genitourinary: no complaints Musculoskeletal: no complaints Skin: no complaints Neurologic: dizziness Endocrine: no complaints Lymphatic: no complaints Psychological: nl mood/affect, no complaints Immunologic: no complaints Past Medical History Medical History: Hypercholesterolemia, hypertension, other (mitral valve replacement, atrial tachyarrhythmia) Past Surgical History Past Surgical History: other (mitral valve replacement, 2007) Family Medical History Significant Family History: no pertinent family history Social History Alcohol Use: none Smoking Status: Never smoker Drug Use: none Physical Exam: Vital Signs Date Time Temp Pulse Resp B/P Pulse Ox O2 Delivery O2 Flow Rate FiO2 08/20/17 11:18 80 18 107/64 98 Nasal Cannula 2.0 08/20/17 07:27 98.2 Exam Constitutional: alert, distress (secondary to fear), oriented, well developed Psych: anxiety Head: atraumatic, normocephalic: Eyes: EOMI, PERRL ENT: mucosa pink and moist, tympanic membranes (scarring in right TM, fluid in left TM) Neck: non-tender, supple, no thyromegaly or lymphadenopathy. Respiratory: clear to auscultation, normal air movement, No crackles/rales, No diminished breath sounds, No wheezing Cardiovascular: Regular rhythm at this time; crisp S2 sound of mechanical prosthetic valve. No systolic murmur Gastrointestinal: abdomen soft, non tender; normal liver size, spleen not enlarged, No distention, No rebound or guarding. Musculoskeletal: normal extremities to inspection Extremities: normal pulses Neurological: NURSE CLINICIAN II-XII intact, normal mental status, speech and strength. Skin: normal turgor EKG (monitor): sinus rhythm, no break through arrhythmia. Echocardiogram: (highlights) - Normal size cardiac chambers except mild left atrial enlargement; Normal LV systolic function; well sited mechanical mitral valve prosthesis; Acceptable mean left atrium to left ventricle pressure change (4 mmHg). ASSESSMENT: 1. Paroxysmal atrial fibrillation - The substrate is always left atrial size or pressure in patients with mitral valve disease. In this case the repair and post repair function of the prosthetic valve, left atrium and left ventricle are optimal. 2. Vertigo - due to inner ear problem? Any catecholamine discharge can trigger tachyarrhythmias, especially in patients with valvular disease, post cardiac surgery, etc. 3. Dehydration - due to malaise, other symptoms which prevent patient to keep hydrated. Recommendations: At this time the patient is table with optimal vital signs. She should keep hydrated and comtinue the same treatment. A predischarge EKG should be done for (new) baseline. Lindsey Hines MD Eyes: no complaints ENT: congestion, other (ringing in ears), pain Respiratory: No cough, No shortness of breath, No sputum, No wheezing Cardiovascular: No chest pain, No edema, No lightheadedness, No palpitations Gastrointestinal: nausea, no complaints, No constipation, No diarrhea, No vomiting Genitourinary: no complaints Musculoskeletal: no complaints Skin: no complaints Neurologic: dizziness Lymphatic: no complaints Psychological: anxiety Immunologic: no complaints Past Medical History Medical History: high cholesterol, hypertension, other (mitral valve replacement, atrial arrhythmia) Past Surgical History Past Surgical Hx: other (mitral valve replacement) Social History Alcohol Use: none Smoking Status: Never smoker Drug Use: none Exam/Review of Systems Vital Signs Vitals Vital Signs Date Time Temp Pulse Resp B/P Pulse Ox O2 Delivery O2 Flow Rate FiO2 08/20/17 16:00 69 08/20/17 15:51 98.4 17 113/60 97 08/18/17 19:56 Room Air 08/18/17 16:17 2.0 Intake and Output 08/19/17 08/19/17 08/20/17 15:00 23:00 07:00 Intake Total 600 ml 300 ml Balance 600 ml 300 ml Results Result Diagram: 08/19/17 0634 08/20/17 1016 Results 24 hrs Laboratory Tests Test 08/20/17 05:56 08/20/17 10:16 Prothrombin Time 30.9 H Prothrombin Time Ratio 2.4 INR International Normalized Ratio 2.92 Activated Partial Thromboplast Time 47.5 H Sodium Level 141 Potassium Level 3.7 Chloride Level 107 Carbon Dioxide Level 27 Anion Gap 11 Blood Urea Nitrogen 17 Creatinine 0.79 Glucose Level 160 Calcium Level 9.2 Phosphorus Level 2.2 L Magnesium Level 1.9 Albumin 4.0 Medications Medications Current Medications Carvedilol (Coreg) 12.5 mg BID PO Last administered on 08/20/17 09:36; Admin Dose 12.5 MG; Start 08/18/17 at 21:00 Digoxin (Digoxin) 0.125 mg DAILY@13 PO Last administered on 08/20/17 12:46; Admin Dose 0.125 MG; Start 08/19/17 at 13:00 Meclizine HCl (Antivert) 12.5 mg Q8H PRN PO DIZZINESS; Start 08/18/17 at 13:00 Atorvastatin Calcium (Lipitor) 10 mg DAILY@21 PO ; Start 08/18/17 at 21:00 Warfarin Sodium (Coumadin) 2.5 mg DAILY@17 PO Last administered on 08/20/17 17 :37; Admin Dose 2.5 MG; Start 08/18/17 at 17:00; Status Future hold Loratadine (Claritin) 10 mg DAILY PO Last administered on 08/20/17 09:36; Admin Dose 10 MG; Start 08/18/17 at 13:00 Ondansetron HCl (Zofran Inj) 4 mg Q6H PRN IV NAUSEA AND/OR VOMITING; Start at 13:00 Acetaminophen (Tylenol Tab) 650 mg Q6H PRN PO PAIN LEVEL 1-3 OR FEVER; Start at 13:00 Docusate Sodium (Colace) 100 mg Q12H PRN PO CONSTIPATION; Start 08/18/17 at 13: 00 Magnesium Hydroxide (Milk Of Mag) 30 ml DAILY PRN PO CONSTIPATION; Start at 13:00 Metoprolol Tartrate (Lopressor) 5 mg Q10MIN PRN IV HR >100; Start 08/20/17 at 13:00 Fluticasone Propionate (Flonase 0.05% Nasal) 1 spray BID NASAL ; Start 08/20/17 at 21:00 Assessment/Plan VTE Prophylaxis VTE Prophylaxis Intervention: other (warfarin) Lines/Catheters (ICD-10 Req.) IV Catheter Type (from Nrsg): Saline Lock Piña in Place (from Nrsg): No Assessment/Plan VTE Prophylaxis VTE Prophylaxis Intervention: other (warfarin) Lines/Catheters (ICD-10 Req.) IV Catheter Type (from [facility]): Saline Lock Piña in Place (from [facility]): No Assessment/Plan VTE Prophylaxis VTE Prophylaxis Intervention: other (warfarin) Lines/Catheters (ICD-10 Req.) IV Catheter Type (from [facility]): Saline Lock Piña in Place (from [facility]): No LINDSEY HINES MD Aug 20, 2017 20:40
[2017-08-20] MEDS: ATORVASTATIN 10 MG TAB PO SCH (21:33)
[2017-08-21 00:20] VITALS: BP 104/52; RESP 16
[2017-08-21 01:04] VITALS: PULSE 64
[2017-08-21 04:48] VITALS: PULSE 55
[2017-08-21 07:17] LABS: BASOPHILS % 0.4 % (0.0-2.0); EOSINOPHILS # 0.1 10^3/ul (0.0-0.5); EOSINOPHILS % 1.9 % (0.0-7.0); HEMATOCRIT 41.7 % (37.0-47.0); HEMOGLOBIN 13.4 g/dl (12.0-16.0); LYMPHOCYTES % 28.2 % (15.0-51.0); MEAN CORPUSCULAR HEMOGLOBIN 28.8 pg (29.0-33.0); MEAN CORPUSCULAR HGB CONC 32.1 g/dl (32.0-37.0); MEAN CORPUSCULAR VOLUME 89.7 fl (82.0-101.0); MEAN PLATELET VOLUME 10.8 fl (7.4-10.4); MONOCYTE # 0.6 10^3/ul (0.3-0.9); MONOCYTES % 8.2 % (0.0-11.0); NEUTROPHIL # 4.4 10^3/ul (1.6-7.5); NEUTROPHILS % 60.7 % (39.0-77.0); PLATELET COUNT 173 10^3/UL (140-415); RED BLOOD COUNT 4.65 10^6/ul (4.20-5.40); RED CELL DISTRIBUTION WIDTH 13.9 % (11.5-14.5); WHITE BLOOD COUNT 7.2 10^3/ul (4.8-10.8)
[2017-08-21 07:27] LABS: INR 2.38; PROTIME 26.3 Sec (12.2-14.2); PT RATIO 2.1
[2017-08-21 07:28] LABS: PARTIAL THROMBOPLASTIN TIME 39.4 Sec (25.0-35.0)
[2017-08-21 07:34] LABS: ALBUMIN 3.6 g/dl (3.3-4.9); CREATININE 0.77 mg/dl (0.44-1.00); MAGNESIUM 1.8 mg/dl (1.7-2.5); POTASSIUM 4.2 mmol/L (3.5-5.1)
[2017-08-21 07:47] VITALS: BP 125/58; RESP 17
[2017-08-21 08:00] VITALS: PULSE 58; PULSE 63
[2017-08-21] MEDS: FLUTICASONE 0.05% 16 GM NAS SPRAY NASAL SCH (09:52)
[2017-08-21] MEDS: LORATADINE 10 MG TAB PO SCH (09:52)
[2017-08-21 11:45] VITALS: BP 120/58; RESP 18
[2017-08-21] MEDS: DIGOXIN 0.125 MG TAB PO SCH (12:43)
[2017-08-21] MEDS ORDERED: FLUT16SP17 NASAL ×2 (12:57→12:59)
[2017-08-21] MEDS ORDERED: MECL12.574 PO (12:59)
[2017-08-21] MEDS ORDERED: LORA10TA3 PO (12:59)
--- NOTE | 2017-08-21 13:12 | PN ---
Date/Time of Note Date/Time of Note DATE: 08/21/17 TIME: 13:05 Assessment/Plan VTE Prophylaxis VTE Prophylaxis Intervention: ambulation Lines/Catheters IV Catheter Type (from Nrsg): Saline Lock Urinary Cath still in place: No Assessment/Plan Assessment/Plan 1. Aflutter with RVR - Patients rate has remained stable over the past 24 hours - Repeat EKG this am shows normal sinus rhythm - Cardiology consult appreciated - ECHO shows Nl LV systolic function. Nl LV wall thickness, EF 60-65% Mild enlarged LA, trace MR, MV mechanical prosthesis. - On Coumadin and advise to continue same dose - TSH within normal limits 2. BPPV - Patient has been experiencing vertigo for the past 2 weeks - Appears to be associated with tachycardia episodes as well as rhinitis symptoms - Antivert as needed 3. Acute rhinitis - Patient has fluid in left TM and nasal bogginess - Will treat with Claritin and Flonase BID which has been improving her symptoms 4. MV replacement - stable 5. HLP - on statin 6. Disposition - Medically stable for d/c home. Given contact for cardiology to follow up as outpatient Subjective 24 Hr Interval Summary Free Text/Dictation Patient states doing well and no longer experiencing dizziness/vertigo. Denies any new complaints and no acute overnight events. HR well controlled on monitor. Exam/Review of Systems Vital Signs Vitals Vital Signs Date Time Temp Pulse Resp B/P Pulse Ox O2 Delivery O2 Flow Rate FiO2 08/21/17 11:45 98.1 61 18 120/58 97 08/21/17 00:20 Room Air 08/18/17 16:17 2.0 Intake and Output 08/20/17 08/20/17 08/21/17 15:00 23:00 07:00 Intake Total 500 ml Balance 500 ml Exam General: NAD, oriented, well developed HEENT: NC/AT. horizontal nystagmus, EOMI, PERRL Neck: non-tender, supple Respiratory: clear to auscultation, normal air movement, No crackles/rales, No diminished breath sounds, No wheezing Cardiovascular: regular rate and rhythm. No systolic murmur Gastrointestinal: nl liver, spleen, non-tender, soft, No distended, No rebound or guarding Extremities: normal pulses Results Result Diagram: 08/21/17 0632 08/21/17 0632 Results 24 hrs Laboratory Tests Test 08/21/17 06:32 White Blood Count 7.2 Red Blood Count 4.65 Hemoglobin 13.4 Hematocrit 41.7 Mean Corpuscular Volume 89.7 Mean Corpuscular Hemoglobin 28.8 L Mean Corpuscular Hemoglobin Concent 32.1 Red Cell Distribution Width 13.9 Platelet Count 173 Mean Platelet Volume 10.8 H Neutrophils % 60.7 Lymphocytes % 28.2 Monocytes % 8.2 Eosinophils % 1.9 Basophils % 0.4 Nucleated Red Blood Cells % 0.0 Neutrophils # 4.4 Lymphocytes # 2.0 Monocytes # 0.6 Eosinophils # 0.1 Basophils # 0.0 Nucleated Red Blood Cells # 0.0 Prothrombin Time 26.3 H Prothrombin Time Ratio 2.1 INR International Normalized Ratio 2.38 Activated Partial Thromboplast Time 39.4 H Sodium Level 140 Potassium Level 4.2 Chloride Level 109 Carbon Dioxide Level 27 Anion Gap 8 Blood Urea Nitrogen 18 Creatinine 0.77 Glucose Level 99 # Calcium Level 9.0 Phosphorus Level 3.0 Magnesium Level 1.8 Albumin 3.6 Medications Medications Current Medications Carvedilol (Coreg) 12.5 mg BID PO Last administered on 08/21/17 09:55; Admin Dose 12.5 MG; Start 08/18/17 at 21:00 Digoxin (Digoxin) 0.125 mg DAILY@13 PO Last administered on 08/21/17 12:43; Admin Dose 0.125 MG; Start 08/19/17 at 13:00 Meclizine HCl (Antivert) 12.5 mg Q8H PRN PO DIZZINESS; Start 08/18/17 at 13:00 Atorvastatin Calcium (Lipitor) 10 mg DAILY@21 PO Last administered on 21:33; Admin Dose 10 MG; Start 08/18/17 at 21:00 Warfarin Sodium (Coumadin) 2.5 mg DAILY@17 PO Last administered on 08/20/17 17 :37; Admin Dose 2.5 MG; Start 08/18/17 at 17:00; Status Future hold Loratadine (Claritin) 10 mg DAILY PO Last administered on 08/21/17 09:52; Admin Dose 10 MG; Start 08/18/17 at 13:00 Ondansetron HCl (Zofran Inj) 4 mg Q6H PRN IV NAUSEA AND/OR VOMITING; Start at 13:00 Acetaminophen (Tylenol Tab) 650 mg Q6H PRN PO PAIN LEVEL 1-3 OR FEVER Last administered on 08/21/17 09:59; Admin Dose 650 MG; Start 08/18/17 at 13:00 Docusate Sodium (Colace) 100 mg Q12H PRN PO CONSTIPATION; Start 08/18/17 at 13: 00 Magnesium Hydroxide (Milk Of Mag) 30 ml DAILY PRN PO CONSTIPATION; Start at 13:00 Metoprolol Tartrate (Lopressor) 5 mg Q10MIN PRN IV HR >100; Start 08/20/17 at 13:00 Fluticasone Propionate (Flonase 0.05% Nasal) 1 spray BID NASAL Last administered on 08/21/17 09:52; Admin Dose 1 SPRAY; Start 08/20/17 at 21:00 BOBBI VICTOR MD Aug 21, 2017 13:12
--- NOTE | 2017-08-21 16:43 | CONS ---
DATE OF ADMISSION: 08/18/2017 DATE OF CONSULTATION: 08/20/2017 REASON FOR CONSULTATION: Dizziness, lightheadedness, paroxysmal atrial fibrillation with a rapid ventricular rate. PROFILE/HISTORY OF PRESENT ILLNESS: The patient is a 62-year- old, female with documented mitral valve disease in the past. The original defect (stenosis versus regurgitation) is not available to me at the time of consultation. Eventually, the patient had a mitral valve replacement with a mechanical prosthesis (likely [employer] type or [employer]) at [facility] in 2007. She has done well and healed well. She has had no significant cardiac problems until now. The patient states that she started developing diarrhea and episodes of dizziness, lightheadedness, and particularly vertigo. She was seen at another hospital, and a CT scan of the head was negative for any abnormalities, and the patient was discharged with meclizine. The symptoms continued, associated with episodes of weakness, and she was admitted this time to [facility]. Upon admission, it was noted that the patient has long stretches of paroxysmal atrial fibrillation with a rapid ventricular rate in approximately 160 range. She was admitted to telemetry for workup for vertigo as well as for paroxysmal atrial fibrillation with rapid ventricular rate. REVIEW OF SYSTEMS: CONSTITUTIONAL: Positive for disorientation at home, fatigue, nausea, vertigo. No chills. No diaphoresis. EYES: No complaints. ENT: Congestion (nasal) as well as ringing in the ears and pain. RESPIRATORY: No cough, no shortness of breath. No sputum or wheezing. CARDIOVASCULAR: The patient denies chest pain, lower extremity edema, shortness of breath, palpitations, or lightheadedness (despite sustained intermittent paroxysmal atrial fibrillation). GASTROINTESTINAL: Positive for nausea. No constipation. No diarrhea or vomiting. GENITOURINARY: No complaints. MUSCULOSKELETAL: No complaints. SKIN: No complaints. NEUROLOGIC: Dizziness, vertigo. PSYCHOLOGICAL: Normal mood and affect. IMMUNOLOGIC: No complaints. PAST MEDICAL HISTORY/COMORBID CONDITIONS: Hypercholesterolemia, hypertension, mitral valve disease requiring mitral valve replacement. PAST SURGICAL HISTORY: Open heart surgery for mitral valve replacement 2007. FAMILY MEDICAL HISTORY: No pertinent family history. SOCIAL HISTORY: Marital status was not ascertained. The patient has no negative habits, does not use alcohol, never smoked, and never used drugs. PHYSICAL EXAMINATION: VITAL SIGNS: The patient is a older, overweight female in no acute distress. CONSTITUTIONAL: Alert, oriented, well-developed. PSYCHIATRIC: Somewhat anxious and apprehensive in regard to her condition. HEAD/EYES: Head normocephalic, atraumatic. (Initially, she had horizontal nystagmus). Eyes: EOMI, PERRL. Conjunctivae and eyelids are normal, sclerae anicteric. Oral mucosa moist with no cyanosis. ENT: Tympanic membranes show scarring on the right and fluid in the left. NECK: Supple, nontender. No lymphadenopathy. Bilateral carotid pulses normal. No thyromegaly. CHEST: Symmetric with equal expansion. LUNGS: Clear to auscultation bilaterally with normal air movement, no rales or wheezes. HEART: PMI is not displaced. There is no left precordial heave. Regular rate and rhythm (after spontaneous conversion to normal sinus rhythm). There is a snappy, metallic 2nd sound of prosthetic mitral valve closure. ABDOMEN: Soft, nontender, nondistended. Bowel sounds normal. EXTREMITIES: No edema, cyanosis, or clubbing. Peripheral pulses normal. DIAGNOSTIC DATA: EKG: Sinus rhythm, nonspecific intraventricular block. Chest x-ray: Normal cardiac size and clear lungs; status post sternotomy. Echocardiogram done during this admission documents normal size cardiac chambers, except mild left atrial enlargement; normal left ventricular systolic function; mild concentric left ventricular hypertrophy; well-seated mechanical mitral valve prosthesis; the mean gradient between the left atrium and the left ventricle components (transmitral gradient) is 4 mmHg, which is optimal for a prosthetic valve. LABORATORY: On 08/21/2017: Hemoglobin 13.4, hematocrit 41.7, WBC 7200, platelet count 173,000. Sodium 140, potassium 4.2, chloride 109, BUN 18, creatinine 0.77. MEDICATION: 1. Carvedilol 12.5 mg a b.i.d. 2. Digoxin 0.125 mg daily. 3. Atorvastatin 10 mg daily. 4. Warfarin 2.5 mg daily. 5. Loratadine 10 mg daily. 6. Ondansetron 4 mg every 6 hour as needed for nausea. 7. Acetaminophen 650 mg as needed for pain. 8. Docusate sodium 100 mg every 12 hours as needed for pain. 9. Magnesium hydroxide (milk of magnesia) 30 mL daily as needed for constipation. 10. Fluticasone propionate 1 spray each nostril twice a day. ASSESSMENT: 1. Paroxysmal atrial fibrillation. This substrate for this arrhythmia is always left atrial size or left atrial pressure in patients with mitral valve disease. In this case, the repair and post-repair functional prosthetic valve as well as the left atrium and left ventricle are optimal. The trigger for paroxysmal atrial fibrillation would be neurological due to the patient's presentation. 2. Vertigo due to inner ear problems. Any catecholamine discharge, as it was the case with this patient who failed poorly, tachyarrhythmia, and especially in patients with valvular disease, paroxysmal atrial fibrillation is probably to be expected in time of distress. 3. Dehydration due to malaise or other symptoms as well as conditions such as nausea and confusion prevent patient to keep hydrated and also can trigger catecholamine release and paroxysmal atrial fibrillation. RECOMMENDATIONS: At this time, the patient is stable with optimal vital signs. The patient should keep hydrated and continue the same treatment. discharge, electrocardiogram was done, and it shows normal sinus rhythm, intraventricular conduction defect, but otherwise no other arrhythmia. Thank you very much for asking me to participate in the evaluation and care of this patient. Dictated By: YUE ROD MD /[email or web address]/[facility] /Document#: [id number]
--- NOTE | 2017-08-21 17:44 | DS ---
Date/Time of Note Date/Time of Note DATE: 08/21/17 TIME: 17:44 Discharge Summary Admission/Discharge Info Admit Date/Time Aug 18, 2017 at 11:07 Discharge Date/Time Aug 21, 2017 at 15:35 Discharge Diagnosis 1. Aflutter with RVR 2. BPPV 3. Acute rhinitis Patient Condition: Good Consults Cardiology, Dr. Flora Farooq of Present Illness 62 yo F with PMH arrhythmia and mitral valve repair presented to ED c/o vertigo for the past 2 weeks. She states she was seen at [facility] this past Tuesday for evaluation. CT scan of head was performed and per patient was negative for any abnormalities and was discharged on Antivert. Patient states symptoms continued and shes been afraid there was something really wrong with her. She also admits to ringing in her ears but denies any new change in hearing. She had surgery on her left ear when she was 10 years old and has always had diminished hearing. She was found to have aflutter with RVR but patient states she is aware that she has an arrhythmia although does not experiencing any palpitations. She did not take her medication this am as well. She is currently on Coumadin. She does admit to having sinus issues and ran out of Flonase which usually helps. Denies any chest pain, palpitations, shortness of breath, or abdominal issues. Hospital Course Patient was admitted to telemetry and heart rate monitored. Patient was given medications for acute rhinitis as well as BPPV. ECHO was performed to assess for any abnormalities which can be contributing to ted/aflutter with RVR. ECHO results showed Normal left ventricular systolic function. Normal left ventricular cavity size. Normal left ventricular wall thickness. Ejection fraction is visually estimated at 60-65 %. Tissue Doppler/Mitral Doppler indices are indeterminate in this study due to the presence of mitral valve replacement. There is mild enlargement of left atrium. Trace mitral regurgitation. Mitral Valve Mechanical Prosthesis. Mitral valve Max Velocity 1.95 m/sec. MaxPG 15.20 mmHg. MeanPG 3.90 mmHg. No hemodynamically significant aortic stenosis by doppler. Aortic cusps appear mildly calcified. Mild to moderate aortic valve regurgitation. Normal appearance of the tricuspid valve. Estimated peak PA systolic pressure 27 mmHg. There is mild tricuspid regurgitation. Patients HR stabilized and she was monitored overnight. The following day her HR was in the 130-180s and Cardiology consult was placed for evaluation. There was some miscommunication about patient receiving her prior night dose of Coreg which may have contributed to her RVR. Her vertigo improved while on rhinitis treatment and she was able to ambulate with physical therapy with no issues. Patient remained rate control for 24 hours with no further episodes of vertigo. She was discharge on her prior medications and advised to use Claritin, Flonase, and Antivert PRN. She was stable from cardiac standpoint for discharge home. Home Meds Active Scripts Loratadine* (Loratadine*) 10 Mg Tablet, 10 MG PO DAILY for 30 Days, #30 TAB 1 Refill Prov:BOBBI VICTOR MD 08/21/17 Fluticasone Propionate* (Fluticasone Propionate* Nasal) 50 Mcg/Lincoln - 16 Gm Lincoln.susp, 1 SPRAY NASAL DAILY for 30 Days, #1 BOT 1 Refill Prov:BOBBI VICTOR MD 08/21/17 Meclizine Hcl* (Antivert*) 12.5 Mg Tab, 12.5 MG PO Q8H for 30 Days, #60 TAB Prov:BOBBI VICTOR MD 08/21/17 Fluticasone Propionate* (Fluticasone Propionate* Nasal) 50 Mcg/Lincoln - 16 Gm Lincoln.susp, 1 SPRAY NASAL BID for 30 Days, #1 BOTTLE 1 Refill Prov:BOBBI VICTOR MD 08/21/17 Reported Medications Pravastatin Sodium (Pravastatin Sodium) 20 Mg Tablet, 20 MG PO HS, TAB 08/18/17 Warfarin Sodium* (Coumadin*) 5 Mg Tablet, 5 MG PO TUESDAY & TUESDAY, TAB 08/18/17 Warfarin Sodium* (Coumadin*) 2.5 Mg Tablet, 2.5 MG PO TUE,,FRI,SAT,SUN, TAB 08/18/17 Carvedilol* (Coreg*) 12.5 Mg Tablet, 12.5 MG PO BID, #60 TAB 08/18/17 Digoxin* (Lanoxin*) 0.125 Mg Tablet, 0.125 MG PO DAILY, TAB 08/18/17 Discontinued Reported Medications Meclizine Hcl* (Antivert*) 12.5 Mg Tab, 12.5 MG PO Q8H Y for DIZZINESS, #30 TAB 08/18/17 Follow-up Plan 1. Advised to take Antivert as needed for vertigo 2. Important to take medications as prescribed and follow up as needed with PCP and Cardiology 3. Take Coumadin as scheduled 4. If symptoms return or worsen, return to the ED Primary Care Provider Care Physician No Primary Time spent on discharge: > 30 minutes Pending Labs Laboratory Tests Test 08/21/17 06:32 White Blood Count 7.210^3/ul (4.8-10.8) Red Blood Count 4.6510^6/ul (4.20-5.40) Hemoglobin 13.4g/dl (12.0-16.0) Hematocrit 41.7% (37.0-47.0) Mean Corpuscular Volume 89.7fl (82.0-101.0) Mean Corpuscular Hemoglobin 28.8pg (29.0-33.0) Mean Corpuscular Hemoglobin Concent 32.1g/dl (32.0-37.0) Red Cell Distribution Width 13.9% (11.5-14.5) Platelet Count 02113^3/UL (140-415) Mean Platelet Volume 10.8fl (7.4-10.4) Neutrophils % 60.7% (39.0-77.0) Lymphocytes % 28.2% (15.0-51.0) Monocytes % 8.2% (0.0-11.0) Eosinophils % 1.9% (0.0-7.0) Basophils % 0.4% (0.0-2.0) Nucleated Red Blood Cells % 0.0/100WBC (0.0-0.0) Neutrophils # 4.410^3/ul (1.6-7.5) Lymphocytes # 2.010^3/ul (0.8-2.9) Monocytes # 0.610^3/ul (0.3-0.9) Eosinophils # 0.110^3/ul (0.0-0.5) Basophils # 0.010^3/ul (0.0-0.1) Nucleated Red Blood Cells # 0.010^3/ul (0.0-0.0) Prothrombin Time 26.3Sec (12.2-14.2) Prothrombin Time Ratio 2.1 INR International Normalized Ratio 2.38 Activated Partial Thromboplast Time 39.4Sec (25.0-35.0) Sodium Level 140mmol/L (135-144) Potassium Level 4.2mmol/L (3.5-5.1) Chloride Level 109mmol/L (97-110) Carbon Dioxide Level 27mmol/L (21-31) Anion Gap 8 (8-16) Blood Urea Nitrogen 18mg/dl (7-20) Creatinine 0.77mg/dl (0.44-1.00) Glucose Level 99mg/dl (70-220) Calcium Level 9.0mg/dl (8.4-10.2) Phosphorus Level 3.0mg/dl (2.5-4.9) Magnesium Level 1.8mg/dl (1.7-2.5) Albumin 3.6g/dl (3.3-4.9) BOBBI VICTOR MD Aug 21, 2017 17:44 (0.0-0.5) Basophils # 0.010^3/ul (0.0-0.1) Nucleated Red Blood Cells # 0.010^3/ul (0.0-0.0) Prothrombin Time 26.3Sec (12.2-14.2) Prothrombin Time Ratio 2.1 INR International Normalized Ratio 2.38 Activated Partial Thromboplast Time 39.4Sec (25.0-35.0) Sodium Level 140mmol/L (135-144) Potassium Level 4.2mmol/L (3.5-5.1) Chloride Level 109mmol/L (97-110) Carbon Dioxide Level 27mmol/L (21-31) Anion Gap 8 (8-16) Blood Urea Nitrogen 18mg/dl (7-20) Creatinine 0.77mg/dl (0.44-1.00) Glucose Level 99mg/dl (70-220) Calcium Level 9.0mg/dl (8.4-10.2) Phosphorus Level 3.0mg/dl (2.5-4.9) Magnesium Level 1.8mg/dl (1.7-2.5) Albumin 3.6g/dl (3.3-4.9) BOBBI VICTOR MD Aug 21, 2017 17:44
--- NOTE | 2017-08-22 08:40 | RADRPT ---
Vent Rate: 60 bpm RR Interval: 0 msec UT Interval: 200 msec QRS Duration: 132 msec QT Interval: 448 msec QTC Interval: 448 msec P-R-T Max: 74 - 57 - 131 degrees Normal sinus rhythm Nonspecific intraventricular block Cannot rule out Anterior infarct , age undetermined Abnormal ECG Electronically Signed By: Brock Manning [id number]
== END 2017-08-21 15:35 | disposition home or self-care (01) | DRG 310 ==
LOC: FTE 07:21 → MS3 11:07 → MS4 23:59
PROVIDERS: ADMIT Internal Medicine; ATTEND Internal Medicine
DX: I48.92 Unspecified atrial flutter (principal); I08.3 Combined rheumatic disorders of mitral, aortic and tricuspid valves; I11.9 Hypertensive heart disease without heart failure; Z95.2 Presence of prosthetic heart valve; I10 Essential (primary) hypertension; H81.10 Benign paroxysmal vertigo, unspecified ear; E78.5 Hyperlipidemia, unspecified; I48.0 Paroxysmal atrial fibrillation; E86.0 Dehydration; J00 Acute nasopharyngitis [common cold]; Z79.01 Long term (current) use of anticoagulants; E78.00 Pure hypercholesterolemia, unspecified
CPT/HCPCS: 36415; 71010; 80053; 80061; 80069; 81001; 83036; 83690; 83735; 83880; 84443; 84484; 85025; 85610; 85730; 93005; 93306; 96374; 97161; J7030